=== PATIENT | female | born 1940 | race Caucasian/White ===

== ENCOUNTER 2018-12-25 07:47 | Emergency (ER) | payer OTHER ==
[~2018-12-25] VITALS: Ht 154.9 cm; Wt 50.3 kg
[2018-12-25 07:54] VITALS: BP 170/103
[2018-12-25] MEDS ORDERED: TDAP [DIPH/PERTUSSIS/TET] 0.5 ML VIAL IM ONE ×2 (08:20→08:30)
== END 2018-12-25 10:12 | disposition home or self-care (01) ==
LOC: ER 07:51
DX: S81.812A Laceration without foreign body, left lower leg, initial encounter (principal); S81.811A Laceration without foreign body, right lower leg, initial encounter; I10 Essential (primary) hypertension; E03.9 Hypothyroidism, unspecified; Z88.5 Allergy status to narcotic agent; W18.39XA Other fall on same level, initial encounter; Y93.89 Activity, other specified; Y92.89 Other specified places as the place of occurrence of the external cause; Y99.8 Other external cause status
CPT/HCPCS: 90715

== ENCOUNTER 2019-06-04 11:57 | Emergency (ER) | payer OTHER ==
[~2019-06-04] VITALS: Ht 154.9 cm; Wt 49.9 kg
--- NOTE | 2019-06-04 12:05 | NUR ---
HEAD INJURY VS CABINET DOOR X 1 HOUR. DENIES KO. +FOREHEAD HEMATOMA. PATIENT A/OX4, BREATHING EVEN AND UNLABORED, NO SOB NOTED. KEPT COMFORTABLE.
--- NOTE | 2019-06-04 13:12 | NUR ---
Ambulatory with steady gait. Patient discharged to home in stable condition. Written and verbal after care instructions given. Patient verbalizes understanding of instruction.
[2019-06-04 13:14] VITALS: BP 170/86
== END 2019-06-04 13:14 | disposition home or self-care (01) ==
LOC: ER 11:57
DX: S06.0X0A Concussion without loss of consciousness, initial encounter (principal); S00.83XA Contusion of other part of head, initial encounter; E03.9 Hypothyroidism, unspecified; I10 Essential (primary) hypertension; Z88.5 Allergy status to narcotic agent; X58.XXXA Exposure to other specified factors, initial encounter; Y93.89 Activity, other specified; Y92.89 Other specified places as the place of occurrence of the external cause; Y99.8 Other external cause status
CPT/HCPCS: 70450-TC

== ENCOUNTER 2020-03-13 08:32 | Emergency (ER) | payer OTHER ==
[~2020-03-13] VITALS: Ht 154.9 cm; Wt 50.8 kg
[2020-03-13 08:35] VITALS: BP 141/72
--- NOTE | 2020-03-13 09:09 | NUR ---
RAPID COVID SSWAB DONE AND SENT TO LAB
--- NOTE | 2020-03-13 09:50 | NUR ---
Notification received from Laboratory. COVID Negative
--- NOTE | 2020-03-13 10:08 | NUR ---
Patient discharged to home in stable condition. Written and verbal after care instructions given. Patient verbalizes understanding of instruction.
== END 2020-03-13 10:09 | disposition home or self-care (01) ==
LOC: ER 09:45
DX: B34.9 Viral infection, unspecified (principal); Z20.828 Contact with and (suspected) exposure to other viral communicable diseases; I10 Essential (primary) hypertension; E03.9 Hypothyroidism, unspecified
CPT/HCPCS: C9803

== ENCOUNTER 2020-07-16 22:56 | Emergency (ER) | payer OTHER ==
[~2020-07-16] VITALS: Ht 154.9 cm; Wt 49.9 kg
--- NOTE | 2020-07-16 23:04 | NUR ---
PT BIBRA C/O 2 EPISODES OF VOMIT AFTER EATING DINNER. PT AAOX4 BREATHING EVENLY AND UNLABORED.PT STATES " IM NOT IN PAIN AND I DIDNT FEEL ANY NAUSEA, I JUST THREW UP MY DINNER" PT DENIES EATING ANYTHING OUT OF THE ORDINARY. PT SKIN WARM, DRY, AND INTACT. PT ATTACHED TO MONITOR AND POX. PT GIVEN BLANKET AND CALL LIGHT WITHIN REACH.
[2020-07-16] MEDS ORDERED: ONDA4TAB5 PO (23:15)
[2020-07-16] MEDS ORDERED: ONDANSETRON 4 MG TAB.RAPDIS ONE (23:17)
[2020-07-16] MEDS ORDERED: ONDANSETRON 4 MG TAB.RAPDIS PO ONE (23:30)
--- NOTE | 2020-07-16 23:51 | NUR ---
Patient discharged to home in stable condition. Written and verbal after care instructions given. Patient verbalizes understanding of instruction. Pt ambulatory with a steady gait
[2020-07-16 23:55] VITALS: BP 124/53
--- NOTE | 2020-07-16 23:55 | NUR ---
CALLED PT SISTER TO COME PICK HER UP. LEFT A VOICEMAIL AND AWAITING A CALL BACK
--- NOTE | 2020-07-17 00:32 | NUR ---
called sister, Nolvia and left another message. Awaiting return call
[2020-07-17] MEDS ORDERED: AMLO-212 PO (17:20)
[2020-07-17] MEDS ORDERED: CARB1TAB21 PO (17:20)
[2020-07-17] MEDS ORDERED: DONE10TA44 PO (17:20)
[2020-07-17] MEDS ORDERED: ESCI10TA PO (17:20)
[2020-07-17] MEDS ORDERED: LEVO50TA8 PO (17:20)
[2020-07-17] MEDS ORDERED: OMEP20CA15 PO (18:37)
[2020-07-17] MEDS ORDERED: POLY17PO4 PO (18:37)
== END 2020-07-17 00:39 | disposition home or self-care (01) ==
LOC: ER 22:57
DX: R11.10 Vomiting, unspecified (principal); I10 Essential (primary) hypertension; E03.9 Hypothyroidism, unspecified; Z88.8 Allergy status to other drugs, medicaments and biological substances
CPT/HCPCS: 99283; Q0162

== ENCOUNTER 2020-07-17 16:49 | Emergency (ER) | payer OTHER ==
[~2020-07-17] VITALS: Ht 152.4 cm; Wt 44.9 kg
[~2020-07-17 16:49] MED LIST: ONDA4TAB5 PO
--- NOTE | 2020-07-17 16:49 | NUR ---
PT BIB SELF C/O EPIGASTRIC PAIN AND CONSTIPATION STARTED YESTERDAY. PT IS AAOX4, NOT IN RESPIRATORY DISTRESS, HOOKED TO SPA ASSOCIATE, KEPT RESTED AND COMFORTABLE. WILL CONTINUE TO MONITOR.
--- NOTE | 2020-07-17 17:05 | NUR ---
AT BEDSIDE FOR EVAL.
[2020-07-17] MEDS ORDERED: ONDANSETRON HCL/PF 4 MG/2 ML VIAL ONE (17:13)
--- NOTE | 2020-07-17 17:15 | NUR ---
URINE SPECIMEN COLLECTED AND SENT TO LAB.
[2020-07-17] MEDS ORDERED: ESCI10TA PO (17:20)
[2020-07-17] MEDS ORDERED: LEVO50TA8 PO (17:20)
[2020-07-17] MEDS ORDERED: DONE10TA44 PO (17:20)
[2020-07-17] MEDS ORDERED: AMLO-212 PO (17:20)
[2020-07-17] MEDS ORDERED: CARB1TAB21 PO (17:20)
--- NOTE | 2020-07-17 17:20 | NUR ---
IV LINE ESTABLISHED BLOOD DRAWN AND SENT TO LAB.
[2020-07-17] MEDS ORDERED: ONDANSETRON HCL/PF 4 MG/2 ML VIAL IVP ONE (17:30)
[2020-07-17] MEDS ORDERED: IV NS 0.9% 1,000 ML BAG IV ONE (17:30)
[2020-07-17 17:33] LABS: BILIRUBIN,URINE Negative (NEGATIVE); COLOR,URINE LIGHT YELLOW (YELLOW); LEUKOCYTE ESTERASE ,URINE Negative (NEGATIVE); NITRITE, URINE Negative (NEGATIVE); PH,URINE 5.5 (5.0-8.0); PROTEIN,URINE Negative (NEGATIVE); UGLUCOSE Negative (NEGATIVE); UROBILINOGEN,URINE 0.2 EU/dL (0.2)
[2020-07-17 17:37] LABS: BASOPHILS # (AUTO) 0.1 /CMM (0.0-0.2); EOSINOPHILS % (AUTO) 0.7 % (0.0-6.0); HEMATOCRIT 37 % (33-45); HEMOGLOBIN 12.1 g/dL (11.5-14.8); LYMPHOCYTES # (AUTO) 2.9 /CMM (0.8-4.8); LYMPHOCYTES % (AUTO) 38.3 % (20.0-44.0); MEAN CORPUSCULAR HGB CONC 33 g/dl (31.0-36.0); MEAN CORPUSCULAR VOLUME 90 fL (82-100); MONOCYTES # (AUTO) 0.8 /CMM (0.1-1.30); MONOCYTES % (AUTO) 9.9 % (2.0-12.0); NEUTROPHILS # (AUTO) 3.8 /CMM (1.8-8.9); NEUTROPHILS % (AUTO) 50.1 % (43.0-81.0); PLATELET COUNT (AUTO) 313 /CMM (150-450); RED BLOOD CELL COUNT(AUTO) 4.04 MIL/uL (4.0-5.2); WHITE BLOOD COUNT (AUTO) 7.6 K/uL (4.3-11.0)
[2020-07-17 17:55] LABS: CALCIUM, SERUM 9.2 mg/dL (8.5-10.1); CARBON DIOXIDE 29 mmol/L (21-32); CHLORIDE 101 mmol/L (98-107); CREATININE 0.8 mg/dL (0.6-1.3); GLUCOSE 94 mg/dL (74-106); POTASSIUM 3.8 mmol/L (3.5-5.1); SODIUM SERUM 139 mmol/L (136-145); UREA NITROGEN, BLOOD 17 mg/dL (7-18)
[2020-07-17 18:10] LABS: ALANINE AMINOTRANSFERASE 16 U/L (12-78); ALBUMIN 4.2 g/dL (3.4-5.0); ALKALINE PHOSPHATASE 86 U/L (46-116); ASPARTATE AMINOTRANSFERASE 28 U/L (15-37); BILIRUBIN,DIRECT 0.1 mg/dL (0.0-0.2); BILIRUBIN,TOTAL 0.5 mg/dL (0.2-1.0); LIPASE 158 U/L (73-393); TOTAL PROTEIN, SERUM 7.9 g/dL (6.4-8.2)
[2020-07-17] MEDS ORDERED: POLY17PO4 PO (18:37)
[2020-07-17] MEDS ORDERED: OMEP20CA15 PO (18:37)
--- NOTE | 2020-07-17 18:56 | NUR ---
IV removed. Catheter intact and site benign. Pressure and 4x4 applied to site. No bleeding noted. Patient discharged to home in stable condition. Written and verbal after care instructions given. Patient verbalizes understanding of instruction.
[2020-07-17 18:57] VITALS: BP 135/78
== END 2020-07-17 18:57 | disposition home or self-care (01) ==
LOC: ER 16:52
DX: R10.13 Epigastric pain (principal); K59.00 Constipation, unspecified; R10.10 Upper abdominal pain, unspecified; R11.10 Vomiting, unspecified; I10 Essential (primary) hypertension; E03.9 Hypothyroidism, unspecified; Z88.6 Allergy status to analgesic agent; Z79.899 Other long term (current) drug therapy
CPT/HCPCS: 36415; 71045; 74176; 80048; 80076; 81003; 83690; 84484; 85025; 93005; 96361; 96374; 99285; J2405; J7030

== ENCOUNTER 2021-04-30 10:51 | Emergency (ER) | payer MEDICARE, OTHER ==
[~2021-04-30] VITALS: Ht 162.6 cm; Wt 55.3 kg
[~2021-04-30 10:51] MED LIST changes: +AMLO-212 PO; +CARB1TAB21 PO; +DONE10TA44 PO; +ESCI10TA PO; +LEVO50TA8 PO; +OMEP20CA15 PO; -ONDA4TAB5 PO; +POLY17PO4 PO
--- NOTE | 2021-04-30 10:51 | NUR ---
PT BIB FAMILY C/O NAUSEA AND VOMITING STARTED THIS MORNING. PT IS AAOX4, NOT IN RESPIRATORY DISTRESS, V/S STABLE, KEPT RESTED AND COMFORTABLE. WILL CONTINUE TO MONITOR.
--- NOTE | 2021-04-30 11:11 | NUR ---
AT BEDSIDE FOR EVAL.
--- NOTE | 2021-04-30 11:13 | NUR ---
SAURABH JOSE [phone]
[2021-04-30] MEDS ORDERED: IV NS 0.9% 1,000 ML BAG IV ONE (11:30)
[2021-04-30] MEDS ORDERED: ONDANSETRON HCL/PF 4 MG/2 ML VIAL IVP ONE (11:30)
[2021-04-30] MEDS ORDERED: ONDANSETRON HCL/PF 4 MG/2 ML VIAL ONE (12:07)
[2021-04-30 12:09] LABS: BASOPHILS % (AUTO) 0.5 % (0.0-2.0); EOSINOPHILS % (AUTO) 0.1 % (0.0-6.0); HEMATOCRIT 38 % (33-45); HEMOGLOBIN 12.7 g/dL (11.5-14.8); LYMPHOCYTES # (AUTO) 1.5 K/uL (0.8-4.8); LYMPHOCYTES % (AUTO) 18.2 % (20.0-44.0); MEAN CORPUSCULAR HGB CONC 33 g/dl (31.0-36.0); MEAN CORPUSCULAR VOLUME 95 fL (82-100); MONOCYTES # (AUTO) 0.6 K/uL (0.1-1.30); MONOCYTES % (AUTO) 7.7 % (2.0-12.0); NEUTROPHILS # (AUTO) 5.9 K/uL (1.8-8.9); NEUTROPHILS % (AUTO) 73.5 % (43.0-81.0); PLATELET COUNT (AUTO) 288 K/uL (150-450); RED BLOOD CELL COUNT(AUTO) 4.01 MIL/uL (4.0-5.2); WHITE BLOOD COUNT (AUTO) 8.1 K/uL (4.3-11.0)
[2021-04-30 12:48] LABS: ALANINE AMINOTRANSFERASE 8 U/L (12-78); ALBUMIN 4.3 g/dL (3.4-5.0); ALKALINE PHOSPHATASE 78 U/L (46-116); ASPARTATE AMINOTRANSFERASE 19 U/L (15-37); BILIRUBIN,DIRECT 0.1 mg/dL (0.0-0.2); BILIRUBIN,TOTAL 0.3 mg/dL (0.2-1.0); CALCIUM, SERUM 8.8 mg/dL (8.5-10.1); CARBON DIOXIDE 30 mmol/L (21-32); CHLORIDE 99 mmol/L (98-107); CREATININE 0.8 mg/dL (0.6-1.3); GLUCOSE 145 mg/dL (74-106); LIPASE 180 U/L (73-393); POTASSIUM 3.6 mmol/L (3.5-5.1); SODIUM SERUM 139 mmol/L (136-145); TOTAL PROTEIN, SERUM 8.1 g/dL (6.4-8.2); UREA NITROGEN, BLOOD 14 mg/dL (7-18)
--- NOTE | 2021-04-30 13:19 | NUR ---
URINE SPECIMEN COLLECTED AND SENT TO LAB.
[2021-04-30 15:24] LABS: BILIRUBIN,URINE NEGATIVE (NEGATIVE); COLOR,URINE YELLOW (YELLOW); LEUKOCYTE ESTERASE ,URINE SMALL (NEGATIVE); NITRITE, URINE NEGATIVE (NEGATIVE); PH,URINE 5.5 (5.0-8.0); PROTEIN,URINE NEGATIVE (NEGATIVE); UGLUCOSE NEGATIVE (NEGATIVE); UROBILINOGEN,URINE 0.2 EU/dL (0.2)
[2021-04-30 15:35] LABS: BACTERIA,URINE 1+ /HPF (None Seen); RBC,URINE 0-2 /HPF (0-2)
[2021-04-30 15:36] LABS: MUCUS,URINE Few /LPF (None Seen)
--- NOTE | 2021-04-30 15:41 | NUR ---
COVID TEST COLLECTED AND SENT
[2021-04-30] MEDS ORDERED: ONDA4TAB5 PO (15:43)
[2021-04-30] MEDS ORDERED: CEPH500C2 PO (15:43)
[2021-04-30 16:07] VITALS: BP 130/70
== END 2021-04-30 16:07 | disposition home or self-care (01) ==
LOC: ER 10:53
DX: U07.1 COVID-19 (principal); R11.2 Nausea with vomiting, unspecified; N39.0 Urinary tract infection, site not specified; E03.9 Hypothyroidism, unspecified; I10 Essential (primary) hypertension; G20 Parkinson's disease; Z79.890 Hormone replacement therapy; Z79.899 Other long term (current) drug therapy
CPT/HCPCS: 36415; 71045; 80048; 80076; 81001; 83690; 84484; 85025; 87086; 93005; 96361; 96374; 99285; J2405; J7030; C9803; U0003

== ENCOUNTER 2021-06-23 10:24 | Emergency (ER) | payer MEDICARE ==
[~2021-06-23] VITALS: Ht 152.4 cm; Wt 51.3 kg
[~2021-06-23 10:24] MED LIST changes: +CEPH500C2 PO; -OMEP20CA15 PO; +ONDA4TAB5 PO; -POLY17PO4 PO
--- NOTE | 2021-06-23 10:36 | NUR ---
PT AMBULATORY TO ER BED 04 C/O "FEELING SICK/FAINT" + NAUSEA AND BEEN NOTICING CONCENTRATED COLOR URINE. STATES ON ANTIBIOTICS FOR UTI. DENIES CHEST PAIN. GOWNED PLACED ON MONITOR. VSS. AWAITING MD HANDY.
--- NOTE | 2021-06-23 10:56 | NUR ---
IV LINE STARTED BLOOD DRAWN AND SENT TO LAB.
--- NOTE | 2021-06-23 10:59 | NUR ---
DR ASIF AT BEDSIDE FOR EVAL.
[2021-06-23] MEDS ORDERED: IV NS 0.9% 1,000 ML IV ONE (11:30)
[2021-06-23 11:36] LABS: BILIRUBIN,URINE NEGATIVE (NEGATIVE); COLOR,URINE DARK YELLOW (YELLOW); LEUKOCYTE ESTERASE ,URINE TRACE (NEGATIVE); NITRITE, URINE NEGATIVE (NEGATIVE); PROTEIN,URINE 30 mg/dl (NEGATIVE); UGLUCOSE NEGATIVE (NEGATIVE); UROBILINOGEN,URINE 0.2 EU/dL (0.2)
[2021-06-23 13:31] LABS: BASOPHILS % (AUTO) 0.4 % (0.0-2.0); EOSINOPHILS % (AUTO) 0.3 % (0.0-6.0); HEMATOCRIT 39 % (33-45); HEMOGLOBIN 12.6 g/dL (11.5-14.8); LYMPHOCYTES # (AUTO) 1.5 K/uL (0.8-4.8); LYMPHOCYTES % (AUTO) 15.1 % (20.0-44.0); MEAN CORPUSCULAR HGB CONC 33 g/dl (31.0-36.0); MEAN CORPUSCULAR VOLUME 93 fL (82-100); MONOCYTES # (AUTO) 0.6 K/uL (0.1-1.30); MONOCYTES % (AUTO) 6.2 % (2.0-12.0); NEUTROPHILS # (AUTO) 7.7 K/uL (1.8-8.9); PLATELET COUNT (AUTO) 319 K/uL (150-450); RED BLOOD CELL COUNT(AUTO) 4.15 MIL/uL (4.0-5.2); WHITE BLOOD COUNT (AUTO) 9.9 K/uL (4.3-11.0)
[2021-06-23 13:59] LABS: BILIRUBIN,TOTAL 0.4 mg/dL (0.2-1.0); CALCIUM, SERUM 9.4 mg/dL (8.5-10.1); CREATININE 0.7 mg/dL (0.6-1.3); MAGNESIUM 1.9 mg/dL (1.8-2.4); POTASSIUM 3.7 mmol/L (3.5-5.1); TOTAL PROTEIN, SERUM 7.6 g/dL (6.4-8.2)
[2021-06-23 14:10] LABS: BACTERIA,URINE Few /HPF (None Seen); HYALINE CASTS, URINE Few /LPF (None Seen); MUCUS,URINE Few /LPF (None Seen); SQUAMOUS EPITHELIAL CELL,UR Few /HPF (None Seen)
--- NOTE | 2021-06-23 14:30 | NUR ---
BREONNA LOAN DOCUMENTATION SPECIALIST [phone]
[2021-06-23] MEDS ORDERED: CEPH500T PO (14:36)
--- NOTE | 2021-06-23 14:54 | NUR ---
Patient discharged to home in stable condition. Written and verbal after care instructions given. Patient verbalizes understanding of instruction.IV removed. Catheter intact and site benign. Pressure and 4x4 applied to site. No bleeding noted.
[2021-06-23 14:55] VITALS: BP 125/80
== END 2021-06-23 14:56 | disposition home or self-care (01) ==
LOC: ER 11:29
DX: R53.1 Weakness (principal); N39.0 Urinary tract infection, site not specified; I10 Essential (primary) hypertension; E03.9 Hypothyroidism, unspecified; Z88.5 Allergy status to narcotic agent; Z79.899 Other long term (current) drug therapy; Z86.69 Personal history of other diseases of the nervous system and sense organs
CPT/HCPCS: 36415; 71045; 80053; 81001; 83735; 84484; 85025; 96360; 99284; J7030

== ENCOUNTER 2021-11-13 10:28 | Emergency (ER) | payer MEDICARE ==
[~2021-11-13] VITALS: Ht 152.4 cm; Wt 47.2 kg
[~2021-11-13 10:28] MED LIST changes: +CEPH500T PO
--- NOTE | 2021-11-13 12:00 | NUR ---
Right Shoulder Sling applied by EMT
--- NOTE | 2021-11-13 12:35 | NUR ---
Patient discharged to home in stable condition. Written and verbal after care instructions given. Patient and Animal Cytologist verbalizes understanding of instruction.
[2021-11-13 12:36] VITALS: BP 145/72
== END 2021-11-13 12:37 | disposition home or self-care (01) ==
LOC: ER 10:35
DX: S42.031A Displaced fracture of lateral end of right clavicle, initial encounter for closed fracture (principal); I10 Essential (primary) hypertension; E03.9 Hypothyroidism, unspecified; G20 Parkinson's disease; Z88.6 Allergy status to analgesic agent; Z79.899 Other long term (current) drug therapy; W01.0XXA Fall on same level from slipping, tripping and stumbling without subsequent striking against object, initial encounter; Y93.89 Activity, other specified; Y92.89 Other specified places as the place of occurrence of the external cause; Y99.8 Other external cause status
CPT/HCPCS: 73030-TC

== ENCOUNTER 2021-11-15 16:36 | Inpatient (IN) | payer MEDICARE ==
[~2021-11-15] VITALS: Ht 160 cm; Wt 48.1 kg
--- NOTE | 2021-11-15 17:18 | NUR ---
PT TAKEN TO RADIOLOGY
--- NOTE | 2021-11-15 19:20 | NUR ---
RECEIVED REPORT FROM JW AREVALO FOR MAIKOL, PT RESTING COMFOTABLY IN BED WITH SON AT BEDSIDE. CONNECTED TO MONITOR, VSS. DENIES ANY PAIN AT THIS TIME. WILL CONTINUE TO MONITOR
--- NOTE | 2021-11-15 19:57 | NUR ---
COVID SWAB COLLECTED AND SENT TO LAB
--- NOTE | 2021-11-15 19:57 | NUR ---
IV LINE ESTABLISHED, LFA20G
[2021-11-15 22:25] LABS: BASOPHILS % (AUTO) 0.7 % (0.0-2.0); EOSINOPHILS % (AUTO) 1.3 % (0.0-6.0); HEMATOCRIT 35 % (33-45); HEMOGLOBIN 11.8 g/dL (11.5-14.8); LYMPHOCYTES # (AUTO) 2.2 K/uL (0.8-4.8); MEAN CORPUSCULAR HGB CONC 34 g/dl (31.0-36.0); MEAN CORPUSCULAR VOLUME 91 fL (82-100); MONOCYTES # (AUTO) 0.8 K/uL (0.1-1.30); MONOCYTES % (AUTO) 11.8 % (2.0-12.0); NEUTROPHILS # (AUTO) 3.4 K/uL (1.8-8.9); NEUTROPHILS % (AUTO) 52.2 % (43.0-81.0); PLATELET COUNT (AUTO) 265 K/uL (150-450); RED BLOOD CELL COUNT(AUTO) 3.77 MIL/uL (4.0-5.2); WHITE BLOOD COUNT (AUTO) 6.5 K/uL (4.3-11.0)
[2021-11-15 22:34] LABS: CALCIUM, SERUM 8.9 mg/dL (8.5-10.1); CARBON DIOXIDE 29 mmol/L (21-32); CHLORIDE 102 mmol/L (98-107); CREATININE 0.6 mg/dL (0.6-1.3); GLUCOSE 89 mg/dL (74-106); POTASSIUM 3.9 mmol/L (3.5-5.1); SODIUM SERUM 137 mmol/L (136-145); UREA NITROGEN, BLOOD 21 mg/dL (7-18)
[2021-11-15] MEDS ORDERED: ONDANSETRON HCL/PF 4 MG/2 ML VIAL IVP PRN (23:00)
[2021-11-15] MEDS ORDERED: IV NS 0.9% 1,000 ML IV PRN (23:00)
[2021-11-15] MEDS ORDERED: MAGNESIUM HYDROXIDE 30 ML UDC PO PRN (23:00)
[2021-11-15] MEDS ORDERED: ACETAMINOPHEN 325 MG TABLET PO PRN (23:00)
[2021-11-15] MEDS ORDERED: MAG HYDROX/AL HYDROX/SIMETH 30 ML UDC PO PRN (23:00)
[2021-11-15] MEDS ORDERED: Z GUARD REMEDY 4 OZ OINT TP PRN (23:00)
[2021-11-15] MEDS ORDERED: ZOLPIDEM TARTRATE 5 MG TABLET PO PRN (23:00)
--- NOTE | 2021-11-15 23:51 | NUR ---
PT TO RM 113-1.
[2021-11-16] VITALS (9 sets, daily range): BP systolic 89–142; BP diastolic 51–86
--- NOTE | 2021-11-16 00:11 | NUR ---
RN NOTE RECEIVED REPORT FROM SECURITY OFFICERIRINA LAUREANO
--- NOTE | 2021-11-16 00:12 | NUR ---
REPORT GIVEN TO
--- NOTE | 2021-11-16 00:24 | NUR ---
INITIAL RN NOTE PT ARRIVED TO UNIT VIA GURNEY, ABLE TO AMBULATE TO BED WITH STEADY GAIT. PT RECEIVED WITH ADMITTING DX OF SUSPECTED ICH S/P GLF. PT HAS MEDICAL HX OF HTN, PARKINSON'S DISEASE, DEMENTIA, HYPOTHYROIDISM. PT ON RA WITH CURRENT O2SAT OF 93%; PT DENIES FEELING SOB, NO S/S OF RESP DISTRESS, NON-LABORED AND EQUAL BREATHING. ATTACHED TO EXTERNAL MONITOR, SR WITH HR OF 60. IV ACCESS ON LEFT HAND 20G, INTACT AND PATENT, FLUSHES EASILY WITH NO RESISTANCE; NO FLUIDS/MEDS RUNNING THROUGH IT OF RIGHT NOW. ALL BELONGINGS CHECKED; BELONGINGS LIST PLACED IN CHART. BED IN LOWEST POSITION, CALL LIGHT WITHIN REACH, SIDE RAILS UP X2. WILL INITIATE PLAN OF CARE.
--- NOTE | 2021-11-16 05:17 | NUR ---
RN NOTE ORTHOSTATIC BP ARE FOLLOWS: -LYIN/66 HR: 61 -SITTING 1 MIN: 137/76 HR: 70 -SITTING 3 MINS: 157/70 HR: 63
--- NOTE | 2021-11-16 06:35 | NUR ---
WINE BLENDER CLOSING NOTE PT REMAINS IN BED, AWAKE, A&O X4, CALM, COOPERATIVE, SLEPT WELL THROUGHOUT THE NIGHT. ON RA WITH O2SAT RANGING FROM 93%-94%; NO S/S OF RESP DISTRESS, NO SOB OR COUGH, NON-LABORED AND EQUAL BREATHING. PT ATTACHED TO EXTERNAL MONITOR SB-SR WITH HR LOW 57 AND HIGH 61. PT ABLE TO AMBULATE TO RESTROOM WITH ASSIST. PT REPORTS OF PAIN WHEN MOVING RIGHT ARM D/T RIGHT CLAVICLE FRACTURE; PER PT REPORT, SHE DOES NOT WANT TO WEAR SLING. LFA 20G INTACT AND PATENT, FLUSHES EASILY WITH NO RESISTANCE, HAS NS RUNNING AT 75 ML/HR. BED IN LOWEST POSITION, CALL LIGHT WITHIN REACH, SIDE RAILS UP X2. WILL ENDORSE TO DAYSHIFT NURSE TO CONTINUE CARE.
[2021-11-16] MEDS ORDERED: LEVOTHYROXINE SODIUM 50 MCG TABLET PO SCH (07:00)
--- NOTE | 2021-11-16 07:15 | NUR ---
DISTRICT SUPERINTENDENT OPENING NOTE PT REMAINS IN BED, AWAKE, A&O X4, CALM, COOPERATIVE. ON RA WITH O2SAT RANGING FROM 93%-94%; NO S/S OF RESP DISTRESS, NO SOB OR COUGH, NON-LABORED AND EQUAL BREATHING. PT ATTACHED TO EXTERNAL MONITOR SB-SR WITH HR LOW 57 AND HIGH 61. PT ABLE TO AMBULATE TO RESTROOM WITH ASSIST. PT REPORTS OF PAIN WHEN MOVING RIGHT ARM D/T RIGHT CLAVICLE FRACTURE; PER PT REPORT, SHE DOES NOT WANT TO WEAR SLING. LFA 20G INTACT AND PATENT, FLUSHES EASILY WITH NO RESISTANCE, HAS NS RUNNING AT 75 ML/HR. BED IN LOWEST POSITION, CALL LIGHT WITHIN REACH, SIDE RAILS UP X2. WILL CONTINUE PLAN OF CARE AND ANTICIPATE NEEDS.
[2021-11-16 07:16] LABS: BASOPHILS % (AUTO) 0.9 % (0.0-2.0); HEMATOCRIT 35 % (33-45); HEMOGLOBIN 11.6 g/dL (11.5-14.8); LYMPHOCYTES # (AUTO) 1.7 K/uL (0.8-4.8); LYMPHOCYTES % (AUTO) 40.4 % (20.0-44.0); MEAN CORPUSCULAR HGB CONC 34 g/dl (31.0-36.0); MEAN CORPUSCULAR VOLUME 90 fL (82-100); MONOCYTES # (AUTO) 0.5 K/uL (0.1-1.30); MONOCYTES % (AUTO) 12.3 % (2.0-12.0); NEUTROPHILS # (AUTO) 1.9 K/uL (1.8-8.9); NEUTROPHILS % (AUTO) 44.4 % (43.0-81.0); PLATELET COUNT (AUTO) 259 K/uL (150-450); RED BLOOD CELL COUNT(AUTO) 3.85 MIL/uL (4.0-5.2); WHITE BLOOD COUNT (AUTO) 4.2 K/uL (4.3-11.0)
[2021-11-16] MEDS ORDERED: ONDANSETRON 4 MG TAB.RAPDIS PO PRN (07:30)
[2021-11-16 07:58] LABS: CALCIUM, SERUM 8.7 mg/dL (8.5-10.1); CARBON DIOXIDE 29 mmol/L (21-32); CHLORIDE 106 mmol/L (98-107); CREATININE 0.5 mg/dL (0.6-1.3); GLUCOSE 99 mg/dL (74-106); POTASSIUM 3.8 mmol/L (3.5-5.1); SODIUM SERUM 142 mmol/L (136-145); UREA NITROGEN, BLOOD 14 mg/dL (7-18)
--- NOTE | 2021-11-16 08:00 | NUR ---
ORTHOSTATIC VITAL SIGNS FOR 0800 ARE FOLLOWS. HEART RATE LAYING SUPINE: 60 BLOOD PRESSURE LAYING SUPINE: 142/86 HEART RATE SITTIN BLOOD PRESSURE SITTIN/66 HEART RATE STANDIN BLOOD PRESSURE STANDIN/64
[2021-11-16 08:13] LABS: THYROID STIMULATING HORMONE 6.058 uIU/mL (0.358-3.74)
[2021-11-16] MEDS ORDERED: ESCITALOPRAM OXALATE (10 MG) 10 MG TABLET PO SCH (09:00)
[2021-11-16] MEDS ORDERED: AMLODIPINE BESYLATE 5 MG TABLET PO SCH (09:00)
[2021-11-16] MEDS ORDERED: DONEPEZIL 5 MG TABLET PO SCH (09:00)
[2021-11-16] MEDS: CARBIDOPA/LEVODOPA 25/100 MG 1 UDTAB PO SCH ×3 (09:47→16:04)
--- NOTE | 2021-11-16 15:27 | NUR ---
SS consult: SS consult requested for pt. who fell at home. ROXANE met with pt. at bedside. The pt. is a 81 year old female who comes from home [[address] [facility] [address]; [phone]]where she lives alone. The pt.'s son, Arsalan Mckeon [phone] who resides in [place] is at bedside. The pt. is currently alert & oriented x 4 and makes good eye contact. The pt.'s speech is WNL. The pt. denies SI/HI and denies hallucinations. The patient is a poor historian and Arsalan stated that the pt. has a Hx. of Parkinson's Dementia. Arsalan was able to provide patient's history. Per Arsalan the pt. has a caregiver, that works 8 am -4 pm x 7 days a week and they have asked the caregiver is they can become a live in 24 hour caregiver. Per Arsalan, the pt. ambulates independently at home. Per pt. she receives SSI, does no use drug or alcohol, has no history of mental health issues. Per Arsalan, the pt. has a daughter, Dawn Mckeon [phone] who also resides in [place]. Per Arsalan, the patient's next door neighbor is supportive. D Plan: Pt. states she would like to return home when ready for discharge. ROXANE discussed safety plan DME for home, caregiving, and pt. states she has a life alert system. ROXANE will discuss DC plan with CM and possible Home health. ROXANE provided pt. with a list of senior resources ad pt. accepted them. ABUSE PREVENTION: ELDER ABUSE HOTLINE (13/11) ADULT PROTECTIVE SERVICES HOTLINE LONG-TERM CARE [facility] Region AREA ON AGING (HOTLINE) ADULT DAY HEALTH CARE CARE CENTERS: Private pay or Medi-yue funded adult day care [place] Adult [facility] , [facility] , [facility] , [place] [place] [facility] , Cristian [facility] Adult [facility] Care , [facility] Adult Daycare Center , [facility] Generation Center , [facility] , [place] ALZHEIMERS DISEASE/DEMENTIA: Alzheimers Association Helpline [facility] Chapter www.alz.org/[facility] Department of Aging www.lacity.org Family Caregiver [place] www.caregiver.org [place] Caregiver Resources Center/Family Support www.[facility].org CANCER RESOURCES: [place] Cancer Society www.cancer.org Cancer Support Community www.CancerSupportVvsb.org: CancerCare www.cancercare.org [facility] Cancer Support [place] www.[facility].org [facility] HEALTH ASSOCIATIONS: AARP www.aarp.org ALS Association (ask for Rae) www.als.org [place] Diabetes Association www.diabetes.org [place] Heart Association www.heart.org [place] Lung Association www.lungusa.org [place] Parkinson Disease Association www.apdaparkinson.org Sammarinese [place] , www.redcross.org Arthritis Foundation www.arthritis.org Crohns & Colitis Foundation of Sammarinese www.ccfa.org/chapters/candelaria National Multiple Sclerosis Society www.nationalmssociety.org Myasthenia Gravis Foundation www.myasthenia-ca.org National Stroke Association www.stroke.org CONSERVATORSHIP & GUARDIANSHIP: AARP Alejandra Morelos Legal Services Center for Health Care Rights Eldercare Information and Referral Java Scala Developer Foundation [facility]: [facility] Bar Referral Service [facility] Legal Services Office of the Public Guardian Damar EYESIGHT DISORDER RESOURCES: [place] Macular Degeneration Foundation [facility] www.[facility].org GRIEF AND BEREAVEMENT RESOURCES: [facility] , [facility] THE [facility] , [facility] Bereavement Center , [place] HEARING DISORDER RESOURCES: [place] Telephone Access Program Deaf and Disabled Telecommunications Program www.ddtp.cpu.ca.gov HearRx Hearing Centers ([place]) Better Hearing Systems , [place] GLAD ([facility] Agency on Deafness) V/ TTY; Manufacturing Teacher , [facility] Hearing [facility] -low income hearing aid assistance www.IceWEBhearingfoundation.org [place] [facility] , Cristian HELP AT HOME CAREGIVER SUPPORT: In Home Support Services (Must have Medi-Yue to be eligible) *Ask for a list of agencies that provide services to assist with care in the home. Local Senior Centers also have listings of care providers. HOME SAFETY MODIFICATIONS AND EQUIPMENT: Senior centers have additional referrals. [place] Housing and Community Investment Dept. Handyworker Program (low income) or Visit http://hcidla.lacity.org/xsq-vudjru-yj for more information National Seating and Mobility and/or ; Forever Active www.foreveractivemed.Gracenote Stay Home Safe www.StayhomSocialGuide.[place]enote LIFE ALERT RESPONSE SYSTEM: BioClinica Services 539-137-6367 www. Leftronic Life Alert 459-193-9389 www.AltiGen Communications Life Station [phone] www.Parse.[place] Safe Return 020-070-8547 www.alz.or/safereturn Cell Phones for Seniors www.Et3arraf MEALS AND FOOD PROGRAMS: [place] Meals on Wheels [phone] [place] Meals on Wheels [phone] [facility] [phone] [place] to the Homebound [phone] [place] to the Homebound [phone] [facility] to the Homebound [phone] [facility] to the Homebound [phone] [facility] [phone] [facility] [phone] ONE Generation [phone] [facility] [phone] [facility] [phone] Meals on Wheels [phone] For all ages: $6.85/ meal w side. Delivered M-F from 10 am-1pm. Application and payment is done over the phone. Frozen meals available for weekends. Emergency Food [facility] [phone] [facility] Mobile Game Engineer [phone] [facility] [phone] [facility]- Brown bag lunches [phone] [facility] [phone] MEAL/GROCERY DELIVERY PROGRAMS: [facility]ape [facility] Meals [phone]- [facility] [phone]- [facility] Magic Kitchen [phone] Moms Meals [phone] (ask Falcon for Discount Select grocery stores may provide delivery. MEDICAL INSURANCE SUPPORT SERVICES: Center for Health Care Rights [phone] Health Insurance Counseling/Advocacy Programs (HICAP)-Must have Medicare. Offers counseling for Medi-Yue eligibility [phone] [facility] of Public Mobile Game Engineer [phone] www.[facility].ca.gov Medicare [phone] www.socialsecurity.org Social Security [phone] SENIOR ACTIVITY PROGRAMS: *Contact a local senior center, adult school, recreation facility or community college for education, fitness, recreation, and social programs. Aquatic Therapy and Adapted Exercise programs through [facility] [phone] Encore at [facility] [phone] www.[facility]/encore U- Senior Friends [phone] [place] Senior Programs [phone] www.oasisnet.org Suddenly 65 www.woxxnifi29.com SENIOR CENTERS: [facility] Senior Center [phone] [facility] [phone] [facility] [phone] [facility] [phone] [facility] [phone] [facility] [phone] [facility] [phone] [facility] [phone] One Generation, [place] [facility] [phone] [facility] [phone] [phone] [facility] [phone] [facility] [place] [phone] TRANSPORTATION: Local [facility] Centers may have applications for transportation programs and additional resources. ACCESS Services [phone] Transportation for seniors and disabled persons 7 days a week requiring 254 hr. advance reservation. Must apply and register for program alexandra eligible. CITY RIDE 520-639-1753 or [phone] Transportation for seniors and persons with ADA card/metro disabled card in the [facility]. M-F only. Must register for services. ONE GENERATION [phone] Serves 65 years + in conjunction with Big Six ride program. Must be registered with both programs. A to B Transport [phone] Provides wheelchair/gurney van service. Adult Medical Transport [phone] Accepts [facility] with prior authorization. Care Van [phone] Provides wheelchair Transport. [facility] Wide Transportation [phone] Provides gurney service Gentle Care [phone] Gurney Transport. [facility] Town Transportation [phone] wheelchair & gurney transport [facility] Transportation [phone] wheelchair & gurney transport [place] Non-Emergency Transport [phone] wheelchair & gurney transport [facility] Living Center [phone] Short Term Transportation primarily for adults with disabilities on social security income. Nominal fee may apply and a reservation is required. City Cab [phone] or [phone] Algolytics [facility] [phone] [place] [address] Referral Services -[phone] For additional programs & services VETERANS RESOURCES: Submissions for Aid and Attendance should be done directly to Federal VA office locatd at : [facility] [id number] [place] [phone] National Caregiver Support Line [phone] [facility] Veterans Services Field Office [phone] [place] Department of Affairs [phone] Pension Information [phone]
--- NOTE | 2021-11-16 17:47 | NUR ---
RN CLOSING NOTE PATIENT HAS BEEN DISCHARGED HOME. IV ACCESS DISCONTINUED. ALL BELONGINGS ACCOUNTED FOR. BELONGINGS LIST SIGNED. DISCHARGE TEACHING GIVEN TO PATIENTS SON, WHO WILL BE TAKING CARE OF HER AT HOME. DISCHARGE INSTRUCTIONS FORM SIGNED. PATIENT WAS ESCORTED WITH HER SON TO THE FRONT LOBBY WHERE SHE LEFT HOSPITAL GROUNDS IN A PRIVATE CAR IN STABLE CONDITION.
== END 2021-11-16 17:35 | disposition home or self-care (01) | DRG 73 ==
LOC: ER 16:43 → MEDSG1 23:52 → TELE1 11-16 02:36
PROVIDERS: ADMIT Nurse Practitioner Acute Care; ATTEND Nurse Practitioner Acute Care
DX: G90.8 Other disorders of autonomic nervous system (principal); N17.0 Acute kidney failure with tubular necrosis; S42.031A Displaced fracture of lateral end of right clavicle, initial encounter for closed fracture; S00.93XA Contusion of unspecified part of head, initial encounter; R29.6 Repeated falls; F02.80 Dementia in other diseases classified elsewhere, unspecified severity, without behavioral disturbance, psychotic disturbance, mood disturbance, and anxiety; G20 Parkinson's disease; W18.30XA Fall on same level, unspecified, initial encounter; Y92.9 Unspecified place or not applicable; Z88.5 Allergy status to narcotic agent; E03.9 Hypothyroidism, unspecified; Z79.899 Other long term (current) drug therapy; Z79.890 Hormone replacement therapy; I10 Essential (primary) hypertension
CPT/HCPCS: 36415; 70450-TC; 71045-TC; 72125-TC; 73030-TC; 80048-TC; 83735-TC; 84100-TC; 84443-TC; 85025-TC; 87081-TC; 93307-TC; 97116-TC; 97530-TC; C9803; G0378; J7030